=== PATIENT | female | born 2000 | race Caucasian/White ===

== ENCOUNTER 2024-12-04 17:52 | Emergency (ER) | payer MEDICAID, SELFPAY ==
[2024-12-04 17:56] VITALS: BP 134/85; PULSE 68; RESP 16; TEMP 36.8; O2SAT 98
--- NOTE | 2024-12-04 18:11 | W.ED.GENAD ---
Discharge Plan Disposition Patient Disposition: Home Condition: Stable Discharge Details Clinical Impression: Closed fracture of sesamoid bone of right foot Primary Care Provider: Ita,Local ED Provider: Toni Singh Home Meds and New Rx's Prescriptions: No Action No Known Home Meds Discharge Instructions Instructions: Foot Fracture ED Additional Instructions: You were seen in the emergency department for the fracture of the sesamoid bone of the right foot. This is an accessory bone and left over from development, you did not fracture any of your toe or foot structural bones. Please remain in the postop shoe for the next few weeks, you may transition to stable bulky footwear as desired in a few weeks, please rest, ice, compress and elevate. Please use therapeutic dosing of Tylenol (acetamenophen) & Advil (ibuprofen) in an alternating fashion as follows: Take 1000mg of Tylenol every 6 hours without missing doses- that is 4 times per day. [facility] in between the Tylenol dosings, take 400-600mg of Advil also on a 6 hour schedule, that is also 4 times per day. The daily maximum dosing of Tylenol is 4000mg, and the daily maximum dosing of Advil is 2400mg. This is safe to do for weeks. Please note that some common cold medications & prescription pain medications may contain acetamenophen and you need to read OTC drug labels and factor that in to maximum daily dosings. Please use crutches to partially weight-bear as tolerated, your bone should be completely healed in 6 to 8 weeks. Referrals: [facility] [Provider Group] Discharge Data Discharge Date/Time-TO BE ENTERED AT DEPARTURE: 12/04/24 20:53 HPI General Date/Time Provider Initiated Documentation: 12/04/24 18:05. HPI Narrative: 24 year-old female presents to ED today by POV/ambulating with a chief complaint of L foot pain, getting in her car and hyperflexed her foot with onset just prior to arrival. Quality described as sharp pain under the 1st MT bone, no radiation to skin changes, bruising, swelling, deformity, crepitus. Severity is described as moderate to severe. Palliating factors include nothing specific attempted. Provoking factors include nothing specific. Patient not anticoagulated. Related Data Home Medications ?Medication ?Instructions ?Recorded ?Confirmed Unknown [No Known Home Meds] 12/04/24 12/04/24 Allergies Allergy/AdvReac Type Severity Reaction Status Date / Time iodine Allergy Skin Rash Verified 12/04/24 17:58 General Stated Complaint: Orthopedic RENEA: 4 Review of Systems All systems reviewed & are unremarkable except as noted in HPI and below Exam Narrative Exam Narrative: GENERAL APPEARANCE: Well-nourished, non-toxic, awake and alert, atraumatic, no acute distress. SKIN: Warm, pink, dry, intact, without rashes/lesions/ulcerations. HEAD: Normocephalic, atraumatic, normal hair distribution for gender/age. EYES: Normal conjunctiva, no exudates on lids/lashes. ENT: Nares patent, no circumoral cyanosis, no facial swelling NECK: Supple, trachea midline, painless cervical ROM. LUNGS/CHEST: Non-labored respirations, normal A/P diameter, symmetrical expansion, no chest wall deformity HEART (CV/PV): No peripheral edema, no JVD. ABDOMEN: Soft, non-distended, no guarding. MSK: Normal ROM, no swelling/deformity to bilateral UEs or LEs, moving all extremities without weakness, no cyanosis, spine midline without tenderness, normal curvature, tenderness to R base of great toe, R dorsalis pedis pulse 2+, no swelling/deformity/ecchymosis to foot, mild bilat malleolar swelling of R ankle NEURO: Mental Status AAOx4 - alert to person, place, time, events No facial droop, no forehead involvement. Motor: No focal weakness - strength 5/5 in bilateral UEs and LEs, proximal and distal, symmetric. Sensory: sensation intact to light touch globally. Gait normal: patient ambulated without ataxia into ED room. PSYCH: euthymic, cooperative, pleasant, appropriate speech Course Vital Signs Vital signs: Vital Signs Temperature 36.8 C 12/04/24 17:56 Pulse 68 12/04/24 17:56 Respiratory Rate 16 12/04/24 17:56 Blood Pressure 134/85 12/04/24 17:56 Pulse Oximetry 98 12/04/24 17:56 Temperature 36.8 C 12/04/24 17:56 Pulse 68 12/04/24 17:56 Respiratory Rate 16 12/04/24 17:56 Blood Pressure 134/85 12/04/24 17:56 Pulse Oximetry 98 12/04/24 17:56 Pain Level 8 12/04/24 17:56 Medical Decision Making This dictation utilizes [id number] dictation software and may contain unedited grammatical errors. 24 year-old female presents to ED today by POV/ambulating with a chief complaint of R foot pain, getting in her car and hyperflexed her foot with onset just prior to arrival. Quality described as sharp pain under the 1st MT bone, no radiation to skin changes, bruising, swelling, deformity, crepitus. Severity is described as moderate to severe. Palliating factors include nothing specific attempted. Provoking factors include nothing specific. Patients' medical history: Noncontributory. Family and social history: Noncontributory. Pertinent exam findings / vital signs include tenderness to the base of the R first toe without bruising or crepitus or swelling or deformity, mild malleolar swelling. Differential / pathologies of concern include sprain/strain, contusion, fracture, unlikely lisfranc. Diagnostic studies of: -XR R foot and ankle - shows fracture sesamoid bone at distal 1st MT Interventions of: -short boot & crutches. ED Course/Assessment/Plan: 24-year-old female has a fractured sesamoid bone in her foot from 9 for her flexing her foot while getting into a car, counseled on immobilization for a few weeks, RICE therapy and elevation, adequate dosing of Tylenol and ibuprofen. Findings not consistent with neurovascular compromise. Disposition of closed fracture of sesamoid bone of right foot. Patient verbalized understanding of the plan and return to ED criteria and engaged in shared decision making. Medical Records Medical records reviewed: Yes I reviewed the patient's medical records. Imaging Data Radiologic Study: Attestation: I personally reviewed and interpreted this imaging study as follows: Imaging: X-Ray Radiologist's impression: Exam: XR Right Ankle Exam date and time: 12/04/2024 6:42 PM Age: 24 years old Clinical indication: Other: RT ankle pain TECHNIQUE: Imaging protocol: Radiologic exam of the right ankle. Views: 3 or more views. COMPARISON: No relevant prior studies available. FINDINGS: Bones/joints: Three views of the right ankle reveal no acute fracture or dislocation. The ankle mortise is intact. Soft tissues: No gross focal soft tissue swelling is seen. IMPRESSION: No acute fracture or dislocation seen at the right ankle. Dictated and Authenticated by: Kevin Horner MD. Radiologic Study #2: Attestation: I personally reviewed and interpreted this imaging study as follows: Imaging: X-Ray Radiologist's impression: Exam: XR Right Foot Exam date and time: 12/04/2024 6:44 PM Age: 24 years old Clinical indication: Other: RT foot pain TECHNIQUE: Imaging protocol: Radiologic exam of the right foot. Views: 3 or more views. COMPARISON: CR XR ANKLE RT COMPLETE 12/04/2024 6:42 PM FINDINGS: Bones/joints: Three views of the right foot are submitted. There is an oblique fracture through the lateral hallux sesamoid bone, uncertain age. Correlation for point tenderness in this location recommended. Otherwise, no acute fracture is seen among the bones of the foot. There is apparent fusion or partial fusion across the 5th distal interphalangeal joint. Soft tissues: No gross focal soft tissue abnormality is seen. IMPRESSION: Oblique fracture through the lateral hallux sesamoid bone, uncertain chronicity. Correlation for point tenderness in this location recommended. Dictated and Authenticated by: Kevin Horner MD. Quality:SDOH Health Related Social Needs: No Data to Display PFSH All Active Problems (Updated 12/04/24 @ 20:30 by CHRIS Cottrell) Closed fracture of sesamoid bone of right foot (Acute) Social History Smoking/Tobacco Use Status: Never Smoking risk assessment performed?: Yes Alcohol Intake: never Housing: house Do you feel safe at home: Yes Do you feel safe in your relationship?: Yes
--- NOTE | 2024-12-04 18:15 | DI.RAD_ITS ---
Exam(s) XR ANKLE RT COMPLETE EXAM: XR ANKLE RT COMPLETE CLINICAL HISTORY: ankle pain. TECHNIQUE: 2D digital imaging was performed. Three views. COMPARISON: No exams were available for comparison FINDINGS: BONES: No acute fracture is present. No bony destructive lesion is seen. JOINTS: The ankle mortise is normally aligned. SOFT TISSUE: Normal. IMPRESSION: Unremarkable radiographs of the right ankle. DATA REPOSITORY: RADIATION DOSE DELIVERED:
--- NOTE | 2024-12-04 18:15 | DI.RAD_ITS ---
Exam(s) XR FOOT RT COMPLETE EXAM: XR FOOT RT COMPLETE CLINICAL HISTORY: R foot pain. TECHNIQUE: 2D digital imaging was performed. Three views. COMPARISON: No exams were available for comparison FINDINGS: BONES: There is a lucency through the lateral sesamoid bone of the 1st metatarsal which could represe nt a bipartite sesamoid versus fracture. The appears old. Clinical correlation recommended as to pa tient's area of tenderness. Otherwise no acute fracture is present. No bony destructive lesion is se en. JOINTS: No dislocation present. SOFT TISSUE: Normal. IMPRESSION: Question of sesamoid fracture, likely old versus bipartite sesamoid. DATA REPOSITORY: RADIATION DOSE DELIVERED:
--- NOTE | 2024-12-04 20:11 | DI.VRAD_ITS ---
PROCEDURE INFORMATION: Exam: XR Right Ankle Exam date and time: 12/04/2024 6:42 PM Age: 24 years old Clinical indication: Other: RT ankle pain TECHNIQUE: Imaging protocol: Radiologic exam of the right ankle. Views: 3 or more views. COMPARISON: No relevant prior studies available. FINDINGS: Bones/joints: Three views of the right ankle reveal no acute fracture or dislocation. The ankle mortise is intact. Soft tissues: No gross focal soft tissue swelling is seen. IMPRESSION: No acute fracture or dislocation seen at the right ankle. Dictated and Authenticated by: Kevin Horner MD. Orderin Francisco Muñoz MD
--- NOTE | 2024-12-04 20:17 | DI.VRAD_ITS ---
PROCEDURE INFORMATION: Exam: XR Right Foot Exam date and time: 12/04/2024 6:44 PM Age: 24 years old Clinical indication: Other: RT foot pain TECHNIQUE: Imaging protocol: Radiologic exam of the right foot. Views: 3 or more views. COMPARISON: CR XR ANKLE RT COMPLETE 12/04/2024 6:42 PM FINDINGS: Bones/joints: Three views of the right foot are submitted. There is an oblique fracture through the lateral hallux sesamoid bone, uncertain age. Correlation for point tenderness in this location recommended. Otherwise, no acute fracture is seen among the bones of the foot. There is apparent fusion or partial fusion across the 5th distal interphalangeal joint. Soft tissues: No gross focal soft tissue abnormality is seen. IMPRESSION: Oblique fracture through the lateral hallux sesamoid bone, uncertain chronicity. Correlation for point tenderness in this location recommended. Dictated and Authenticated by: Kevin Horner MD. Orderin Francisco Muñoz MD
[2024-12-04 20:53] VITALS: BP 120/71; PULSE 72; RESP 16; O2SAT 98
--- NOTE | 2024-12-07 08:33 | NUR.NOTE ---
pts chart opened to send referral to podiatry, pt called stating the original referral was sent to orthopedics and they instructed her it should be sent to podiatry. Nursing Note:
--- NOTE | 2024-12-07 08:36 | NUR.NOTE ---
Referral has been sent to podiatry, given the ok by the providers on. Nursing Note:
== END 2024-12-04 20:53 | disposition home or self-care (01) ==
PROVIDERS: Emergency Provider Physician Assistant
DX: S92.811A Other fracture of right foot, initial encounter for closed fracture (principal); X58.XXXA Exposure to other specified factors, initial encounter
CPT/HCPCS: 28530; 99283; 73610; 73630

== ENCOUNTER 2024-12-30 08:19 | Outpatient (CLI) | payer MEDICAID, SELFPAY ==
--- NOTE | 2024-12-30 08:00 | DI.RAD_ITS ---
Exam(s) XR FOOT RT COMPLETE EXAM: XR FOOT RT COMPLETE CLINICAL HISTORY: healing? S92.811A FX RT FOOT SESAMOID BONE. TECHNIQUE: 2D digital imaging was performed. COMPARISON: CR,XR XR FOOT RT COMPLETE from 12/04/2024 FINDINGS: 3 views There is no evidence of acute fracture or diastasis of the Lisfranc joint. No pes planus. Great toe metatarsophalangeal joint appears unremarkable. The appearance of the more lateral of the 2 sesamoid bones subjacent to the great toe metatarsal head is radiographically unchanged from images of the 12/04/2024. Either developmentally bipartite or fr actured. IMPRESSION: Radiographically unchanged appearance of sesamoid bone when compared to images of 12/04/2024. DATA REPOSITORY: RADIATION DOSE DELIVERED:
== END 2024-12-30 08:39 ==
LOC: DI 08:19
PROVIDERS: Visit Provider Podiatrist
DX: S92.811D Other fracture of right foot, subsequent encounter for fracture with routine healing (principal); X58.XXXD Exposure to other specified factors, subsequent encounter
CPT/HCPCS: 73630

== ENCOUNTER 2025-01-18 00:33 | Outpatient (CLI) | payer MEDICAID, SELFPAY ==
--- NOTE | 2025-01-18 10:33 | DI.RAD_ITS ---
Exam(s) XR FOOT RT COMPLETE EXAM: XR FOOT RT COMPLETE CLINICAL HISTORY: ? healing,closed fx sesamoid bone rt foot,s92.811a. TECHNIQUE: 2D digital imaging was performed. Three views. COMPARISON: CR XR FOOT RT COMPLETE from 12/30/2024 FINDINGS: BONES: No acute fracture is present. No bony destructive lesion is seen. JOINTS: No dislocation present. SOFT TISSUE: Normal. IMPRESSION: Unremarkable radiographs of the right foot. DATA REPOSITORY: RADIATION DOSE DELIVERED:
== END 2025-01-18 00:53 ==
PROVIDERS: Visit Provider Podiatrist
DX: S92.811D Other fracture of right foot, subsequent encounter for fracture with routine healing (principal); X58.XXXD Exposure to other specified factors, subsequent encounter
CPT/HCPCS: 73630